=== PATIENT | female | born 1990 | race African-American/Black ===

== ENCOUNTER 2021-03-05 07:30 | Emergency (ER) | payer MEDICAID, SELFPAY ==
--- NOTE | ~2021-03-05 | XR_ITS ---
XR chest 2V DATE: 03/05/2021 08:36 INDICATION: Palpitations. Hypertension. Left arm soreness. Headache. Smoker. TECHNIQUE: PA and lateral views COMPARISON: None FINDINGS: Normal heart size. No hilar or mediastinal enlargement. Lungs are clear of infiltrate or co nsolidation. No pleural effusion or pulmonary vascular congestion or pneumothorax. Included skeletal structures are unremarkable. IMPRESSION: Negative Reviewed, dictated and finalized at location B. IMPRESSION: Negative
[2021-03-05 07:35] VITALS: BP 117/90; PULSE 75; RESP 18; TEMP 37.3; O2SAT 99
--- NOTE | 2021-03-05 08:27 | ECG_ITS ---
Measurements Intervals [place] Rate: 62 P: 55 CT: 211 QRS: 50 QRSD: 91 T: 30 QT: 392 QTc: 400 Interpretive Statements SINUS RHYTHM WITH FIRST DEGREE AV BLOCK ABNORMAL ECG Electronically Signed On 03-05-2021 9:09:58 CDT by Glen Raymond D.O.
--- NOTE | 2021-03-05 08:35 | ED.GENADULT ---
HPI - General Adult General Chief complaint: Unspecified Stated complaint: leg numnbess/headache/vision problems Time Seen by Provider: 03/05/21 07:42 Source: patient and RN notes reviewed Mode of arrival: ambulatory Limitations: no limitations History of Present Illness HPI narrative: This is a 30 year old female who presents for evaluation of multiple complaints. Patient states yesterday she had a mild frontal headache. Her headache resolved yesterday and she noticed it again today. She reports headache is nonradiating and she rates pain 2/10. She also states she noticed flashes of light yesterday that was brief. She denies flashes of light today. She denies denies floaters or blurred vision. She is also complaining of left arm pain that is intermittent, and right great toe numbness. She states she is worried about having a heart attack because she has been having palpitations since her diagnosis of covid September 2019. She denies chest pain or shortness of breath with symptom. She complains of anxiousness. Related Data Home Medications Medication Instructions Recorded Confirmed No Home Medications 03/05/21 03/05/21 Allergies Allergy/AdvReac Type Severity Reaction Status Date / Time No Known Allergies Allergy Verified 03/05/21 07:41 Review of Systems Review of Systems: CONSTITUTIONAL: Denies fever, chills, or sweats. EYES: Denies visual changes, redness, or discharge. ENT: Denies rhinorrhea, congestion, sore throat, or otalgia. CARDIOVASCULAR: Denies chest pain, or edema. RESPIRATORY: Denies cough or dyspnea. GASTROINTESTINAL: Denies abdominal pain, nausea, vomiting, or diarrhea. GENITOURINARY: Denies dysuria or hematuria. SKIN: Denies rash or itching. MUSCULOSKELETAL: Denies back pain, joint pain, or myalgia. NEUROLOGIC: Denies weakness. PSYCHIATRIC: Denies depression. All systems reviewed & are unremarkable except as noted in HPI and below PMFSH Past Medical History Medical History (Updated 03/05/21 @ 10:02 by Jennifer Perez MD) Patient denies medical problems Surgical History Surgical History (Updated 03/05/21 @ 08:41 by Jennifer Perez MD) No pertinent past surgical history Social History Social History (Updated 03/05/21 @ 08:41 by Jennifer Perez MD) Smoking status: Never smoker Alcohol intake: never Substance use type: marijuana Exam Narrative: GENERAL: Well-appearing, well-nourished, and in no acute distress. HEAD: Normocephalic, atraumatic EYES: PERRLA and EOMI, conjunctiva clear without discharge EARS: TM's clear bilaterally without erythema or dullness NOSE: Nares clear, no rhinorrhea or epistaxis THROAT:Mucous membranes moist, Oropharynx normal without erythema, exudate, peritonsillar swelling or fluctuance NECK: Supple, without lymphadenopathy or mass RESPIRATORY: No respiratory distress, Airway patent, Respirations non-labored, Clear to auscultation without rales, rhonchi or wheeze HEART: Regular rate and rhythm. No murmur heard. Normal peripheral pulses. ABDOMEN: Soft, nontender, nondistended, normal active bowel sounds. No masses. No rebound or guarding, No organomegaly. EXTREMITIES: No edema, normal strength with full range of motion. SKIN: Warm, dry, normal color without rash NEURO: Alert and oriented x3. CN 2-12 grossly intact. No focal deficits. PSYCH: Normal mood and affect. Extrem: Right lower extremity: normal to inspection, full ROM, normal capillary refill, no joint enlargement and foot Details: normal capillary refill, normal to inspection and toes with normal ROM Left lower extremity: normal to inspection, full ROM, normal capillary refill, no joint enlargement and foot Details: normal capillary refill and normal to inspection Course Reevaluation(s) Reevaluation #1: I discussed with patient labs and physical examination is unremarkable. She will follow up with PCP regarding her atypical symptoms. Date: 03/05/21 Time: 09:59
[2021-03-05] MEDS: ACETAMINOPHEN 500 MG TABLET 1000 MG PO (08:56)
[2021-03-05 09:01] VITALS: BP 109/71; PULSE 66; PULSE 67; RESP 18; O2SAT 100
[2021-03-05 09:08] LABS: Basophils Percent Auto 0.5 % (0.2-1.2); Eosinophils Percent Auto 0.9 % (0-4.4); Hematocrit 39.3 % (37.0-47.0); Hemoglobin 12.7 g/dL (12.0-15.0); Immature Granulocyte Absolute 0.01 K/mm3 (0.00-0.031); Immature Granulocyte Percent A 0.2 % (0-0.5); Lymphocytes Absolute Auto 2.05 K/mm3 (0.9-3.2); Lymphocytes Percent Auto 47.3 % (18.3-44.2); Mean Corpuscular HGB Conc 32.3 g/dl (32-36); Mean Corpuscular Hemoglobin 28.2 pg (26-34); Mean Corpuscular Volume 87.1 fl (80-100); Mean Platelet Volume 8.9 fl (7.4-10.4); Monocytes Absolute Auto 0.4 K/mm3 (0.1-0.6); Monocytes Percent Auto 9.5 % (2.6-8.5); Neutrophils Absolute Auto 1.8 K/mm3 (1.3-6.7); Neutrophils Percent Auto 41.6 % (45.5-73.1); Platelet Count Result 204 k/mm3 (150-375); Red Blood Count 4.51 M/mm3 (4.2-5.4); Red Cell Distribution Width 12.5 % (11.5-14.5); White Blood Count 4.3 K/mm3 (4.5-10.0)
[2021-03-05 09:20] LABS: Alanine Aminotransferase 16 U/L (4-35); Albumin Level 4.3 g/dL (3.5-5.1); Alkaline Phosphatase 55 U/L (38-126); Anion Gap 4 mmol/L (8-16); Aspartate Amino Transferase 26 U/L (14-36); Bilirubin,Total 1.1 mg/dL (0.2-1.3); Blood Urea Nitrogen 10 mg/dL (7-17); Calcium 9.7 mg/dL (8.4-10.2); Carbon Dioxide 28 mmol/L (22-30); Chloride 107 mmol/L (98-107); Estimated CRCL calculation 112 ml/min; Estimated Glomerular Filt Rate > 60; Glucose 84 mg/dL (65-110); Magnesium 1.8 mg/dL (1.6-2.3); Potassium 4.4 mmol/L (3.4-5.0); Sodium 139 mmol/L (137-145)
[2021-03-05 09:31] LABS: Troponin I < 0.012 ng/mL (0.000-0.034)
[2021-03-05 09:39] VITALS: BP 113/76; PULSE 63; RESP 14; O2SAT 100
[2021-03-05 10:10] VITALS: BP 116/79; PULSE 72; RESP 18; O2SAT 100
== END 2021-03-05 10:12 | disposition home or self-care (01) ==
PROVIDERS: Emergency Provider General Practice
DX: R51.9 Headache, unspecified (principal); R00.2 Palpitations; Z86.16 Personal history of COVID-19; I44.0 Atrioventricular block, first degree
CPT/HCPCS: 36415; 71046; 80053; 81025; 83735; 84484; 85025; 93005; 99284; A9270